=== PATIENT | male | born 1995 | race African-American/Black ===

== ENCOUNTER 2017-12-15 14:49 | Emergency (ER) | payer BC, OTHER ==
[~2017-12-15] VITALS: Ht 170.2 cm; Wt 140.9 kg
[~2017-12-15 14:49] MED LIST: Z.0.NO CURRENT MEDS
[2017-12-15 15:01] VITALS: BP 117/74; PULSE 90; RESP 18; TEMP 97.6; O2SAT 100
[2017-12-15] MEDS ORDERED: AMOX500C PO (15:24)
--- NOTE | 2017-12-15 15:24 | PD ---
HPI Chief Complaint: ENT Complaint Time Seen by Provider: 15:08 Travel History International Travel<30 days: No Contact w/Intl Traveler<30days: No Traveled to known affect area: No History of Present Illness HPI This is a 22-year-old male here with sore throat 2 weeks. Patient reports he originally started with what he felt was an upper respiratory infection. All symptoms resolved with the exception of throat. Over the last several days if the pain increased. He is reporting subjective fevers. He has pain with swallowing but does not have difficulty eating, drinking or swelling secretions. No change in voice. Symptom severity is moderate. No alleviating factors. PFSH Past Medical History Asthma: Yes (HASNT NEEDED TO BE TREATED FOR IT IN SEVERAL YEARS) Developmental Delay: No Diminished Hearing: No Immunizations Current: Yes Social History Alcohol Use: No Tobacco Use: No Substance Use: No Allergies-Medications (Allergen,Severity, Reaction): Coded Allergies: No Known Allergies (Verified , 07/19/08) Reported Meds & Prescriptions Reported Meds & Active Scripts Active Amoxicillin 500 Mg Cap 500 Mg PO TID 10 Days Reported No Current Meds (Miscellaneous Medication) Misc Review of Systems Except as stated in HPI: all other systems reviewed are Neg General / Constitutional: Positive: Fever Eyes: No: Visual changes HENT: Positive: Sore Throat Cardiovascular: No: Chest Pain or Discomfort Respiratory: No: Shortness of Breath Gastrointestinal: No: Abdominal Pain Genitourinary: No: Dysuria Physical Exam Narrative GENERAL: Alert and well-appearing 22-year-old male. SKIN: Warm and dry. No rash. HEAD: Normocephalic. EYES: No injection or drainage. Ears/nose/throat: Pharyngeal erythema with mild tonsillar hypertrophy and scant amount of exudate. Uvula is midline. Airway is patent. Normal phonation NECK: Supple, trachea midline. Mild cervical lymphadenopathy. CARDIOVASCULAR: Regular rate and rhythm RESPIRATORY: Breath sounds equal bilaterally. No accessory muscle use. Data Data Last Documented VS Vital Signs Date Time Temp Pulse Resp B/P (MAP) Pulse Ox O2 Delivery O2 Flow Rate FiO2 12/15/17 15:01 97.6 90 18 117/74 (88) 100 Room Air Orders Orders Ed Discharge Order (12/15/17 15:08) MDM Medical Decision Making Medical Screen Exam Complete: Yes Emergency Medical Condition: Yes Differential Diagnosis Strep pharyngitis, viral pharyngitis, mononucleosis Narrative Course 22-year-old male here with sore throat and reported fever. On exam he has pharyngeal erythema with scant amount of exudate. Patient will be treated for pharyngitis. Diagnosis Primary Impression: Pharyngitis Qualified Codes: J02.9 - Acute pharyngitis, unspecified Referrals: Primary Care Physician Additional Instructions: Antibiotics as prescribed. Tylenol or ibuprofen as needed for pain. Drink plenty of fluids. Scripts Amoxicillin (Amoxicillin) 500 Mg Cap 500 MG PO TID for Infection for 10 Days, CAP 0 Refills Prov: Jannette Thurston 12/15/17 Disposition: 01 DISCHARGE HOME Condition: Stable Jannette Thurston Dec 15, 2017 15:24
== END 2017-12-15 15:49 | disposition home or self-care (01) ==
LOC: NEPK 14:49
DX: J02.9 Acute pharyngitis, unspecified (principal); J45.909 Unspecified asthma, uncomplicated
CPT/HCPCS: 99283